=== PATIENT | male | born 1980 | race Hispanic/Latino ===

== ENCOUNTER 2017-08-14 11:17 | Emergency (ER) | payer SELFPAY ==
[2017-08-14] MEDS ORDERED: NA CHLORIDE 0.9% 1,000 ML ONE (11:46)
[2017-08-14] MEDS ORDERED: ONDANSETRON 4 MG/2 ML VIAL ONE (11:46)
[2017-08-14 12:00] LABS: Absolute Lymphocytes (CBC) 3.2 K/uL (0.7-4.9); Absolute Monocytes 0.7 K/uL (0.1-1.3); Basophils % 0.8 % (0-1.3); Eosinophils % 1.8 % (0-4.4); Hematocrit 49.9 % (39.6-49.0); MCH 29.5 pg (27.0-35.0); MCV 89.4 fL (80-100); MPV 9.1 fL (7.6-11.3); Monocytes % 8.1 % (3.3-12.3); RBC Red Blood Cell Count 5.58 M/uL (4.33-5.43)
[2017-08-14 12:07] LABS: Bicarbonate 27 mEq/L (21-31); Lipase 52 U/L (22-51); Potassium 4.1 mEq/L (3.6-5.0); Sodium Level 131 mEq/L (135-145)
[2017-08-14 12:10] LABS: Glucose Level 596 mg/dL (65-120)
[2017-08-14 12:13] LABS: ALT/SGPT 17 IU/L (10-60); AST/SGOT 16 IU/L (10-42); Albumin 4.4 g/dL (3.2-5.5); Alkaline Phosphatase 113 IU/L (42-121); BUN Blood Urea Nitrogen 12 mg/dL (6-20); Bilirubin Direct 0.1 mg/dL (0-0.2); Bilirubin Total 1.1 mg/dL (0.3-1.2); Protein, Total 7.3 g/dL (6.0-8.3)
[2017-08-14] MEDS ORDERED: INSULIN -REGULAR HUMAN 50 UNIT/0.5 ML ML ONE (12:16)
[2017-08-14 13:12] LABS: Urine Blood NEGATIVE (NEG); Urine Glucose 2+ (NEG); Urine Protein NEGATIVE (NEG); Urine pH 6.5 (5.0-7.0)
[2017-08-14 13:19] LABS: Urine Bacteria NONE SEEN /HPF (NONE SEEN); Urine RBC <5 /HPF (NONE SEEN)
[2017-08-14 13:20] LABS: Urine Culture Reflex Order NOT NEEDED
--- NOTE | 2017-08-14 13:56 | EDPHYS ---
Physician Documentation [facility] Name: Alexander Triana Age: 37 yrs Sex: Male : 1980 Arrival Date: 08/14/2017 Time: 11:19 Bed 5 Private MD: ED Physician Alvarado Calero HPI: 08/14 13:53 This 37 yrs old Male presents to ER via Ambulatory with complaints of High gs Blood Sugar. 13:53 The patient or guardian reports hyperglycemia. Onset: The symptoms/episode gs began/occurred 2 day(s) ago. Associated signs and symptoms: Pertinent positives: diarrhea, nausea, vomiting. Current symptoms: In the emergency department the patient's symptoms are unchanged from the initial presentation. The patient has experienced similar episodes in the past, a few times. Historical: - Allergies: 11:30 No Known Allergies; hj - Home Meds: 11:30 metformin 500 mg Oral tab 1 tab 2 times per day [Active]; hj - PMHx: 11:30 Diabetes - NIDDM; hj - PSHx: 11:30 Tonsillectomy; hj - Immunization history:: Adult Immunizations up to date. - Social history:: Smoking status: Patient/guardian denies using tobacco. ROS: 13:53 All other systems are negative. gs Exam: 13:53 Head/Face: Normocephalic, atraumatic. Eyes: Pupils equal round and reactive to light, gs extra-ocular motions intact. Lids and lashes normal. Conjunctiva and sclera are non-icteric and not injected. Cornea within normal limits. Periorbital areas with no swelling, redness, or edema. ENT: Nares patent. No nasal discharge, no septal abnormalities noted. Tympanic membranes are normal and external auditory canals are clear. Oropharynx with no redness, swelling, or masses, exudates, or evidence of obstruction, uvula midline. Mucous membranes moist. Neck: Trachea midline, no thyromegaly or masses palpated, and no cervical lymphadenopathy. Supple, full range of motion without nuchal rigidity, or vertebral point tenderness. No Meningismus. Chest/axilla: Normal chest wall appearance and motion. Nontender with no deformity. No lesions are appreciated. Cardiovascular: Regular rate and rhythm with a normal S1 and S2. No gallops, murmurs, or rubs. Normal PMI, no JVD. No pulse deficits. Respiratory: Lungs have equal breath sounds bilaterally, clear to auscultation and percussion. No rales, rhonchi or wheezes noted. No increased work of breathing, no retractions or nasal flaring. Abdomen/GI: Soft, non-tender, with normal bowel sounds. No distension or tympany. No guarding or rebound. No evidence of tenderness throughout. Back: No spinal tenderness. No costovertebral tenderness. Full range of motion. Skin: Warm, dry with normal turgor. Normal color with no rashes, no lesions, and no evidence of cellulitis. MS/ Extremity: Pulses equal, no cyanosis. Neurovascular intact. Full, normal range of motion. Neuro: Awake and alert, GCS 15, oriented to person, place, time, and situation. Cranial nerves II-XII grossly intact. Motor strength 5/5 in all extremities. Sensory grossly intact. Cerebellar exam normal. Normal gait. 13:53 Constitutional: The patient appears alert, awake, in obvious distress, moderately distressed. Vital Signs: 11:30 BP 115 / 77; Pulse 79; Resp 18; Temp 98.1(TE); Pulse Ox 99% on R/A; Weight 79.38 kg; hj Height 5 ft. 11 in. (180.34 cm); Pain 2/10; 12:30 BP 127 / 79; Pulse 76; Resp 19; Pulse Ox 100% on R/A; tw2 13:00 BP 116 / 74; Pulse 66; Resp 17; Pulse Ox 100% on R/A; tw2 14:02 BP 117 / 70; Pulse 75; Resp 17; Pulse Ox 100% on R/A; tw2 11:30 Body Mass Index 24.41 (79.38 kg, 180.34 cm) MDM: 11:45 Patient medically screened. 13:53 Differential diagnosis: DKA, hyperglycemia, PANCREATITIS. Data reviewed: vital signs, nurses notes. Response to treatment: the patient's symptoms have markedly improved after treatment, and as a result, I will discharge patient. 13:56 ED course: BETTER BS DOWN TOLERATING LIQUIDS. 08/14 11:36 Order name: Basic Metabolic Panel; Complete Time: 13:37 08/14 11:36 Order name: CBC with Diff; Complete Time: 12:11 08/14 11:36 Order name: Hepatic Function; Complete Time: 13:37 gs 08/14 11:36 Order name: Lipase; Complete Time: 13:37 gs 08/14 11:36 Order name: Urine Microscopic Only; Complete Time: 13:37 gs 08/14 11:41 Order name: Glucose; Complete Time: 12:11 sv 08/14 11:36 Order name: IV Saline Lock; Complete Time: 11:44 gs 08/14 12:59 Order name: Urine Dipstick--Ancillary (enter results); Complete Time: 13:37 dm5 08/14 14:08 Order name: Glucose, Ancillary Testing EDMS 08/14 14:08 Order name: Glucose, Ancillary Testing EDMS 08/14 14:08 Order name: Glucose, Ancillary Testing EDMS 08/14 11:36 Order name: Labs collected and sent; Complete Time: 11:44 gs 08/14 11:36 Order name: Urine Dipstick-Ancillary (obtain specimen); Complete Time: 14:05 gs Administered Medications: 11:45 Drug: Zofran 4 mg Route: IVP; Site: right antecubital; tw2 12:15 Follow up: Response: No adverse reaction; Nausea is decreased tw2 11:47 Drug: NS 0.9% 1000 ml Route: IV; Rate: 1 bolus; Site: right antecubital; tw2 12:26 Follow up: Response: No adverse reaction; IV Status: Completed infusion; IV Intake: tw2 1000ml 13:00 Follow up: Response: No adverse reaction; IV Status: Completed infusion; IV Intake: tw2 1000ml 12:17 Drug: Insulin Regular Human 5 units {Co-Signature: sv (Nancy Stout RN).} Route: tw2 IVP; Site: right antecubital; 12:52 Follow up: Response: No adverse reaction; Blood sugar is lowered tw2 Point of Care Testing: Blood Glucose: 11:30 Blood Glucose: 490 mg/dL; hj 11:44 Blood Glucose: High (>450 mg/dL); tw2 12:52 Blood Glucose: 254 mg/dL; tw2 14:01 Blood Glucose: 254 mg/dL; tw2 11:44 labs drawn at this time. tw2 Ranges: Critical Glucose Levels:Adult <50 mg/dl or >400 mg/dl <40 mg/dl or >180 mg/dl Disposition: 08/14/17 13:55 Discharged to Home. Impression: Hyperglycemia, unspecified, Vomiting, Diarrhea, unspecified. - Condition is Stable. - Discharge Instructions: Diarrhea, Hyperglycemia, Nausea and Vomiting. - Medication Reconciliation Form, Thank You Letter, Antibiotic Education, Prescription Opioid Use form. - Follow up: Private Physician; When: 1 - 2 days; Reason: Re-evaluation by your physician. Signatures: Dispatcher [employer] EDMS Michel Mckinney RN RN Elizabeth Ruano RN RN tw2 Alvarado Calero MD MD Nancy Stout RN sv Corrections: (The following items were deleted from the chart) 14:14 13:55 08/14/2017 13:55 Discharged to Home. Impression: Hyperglycemia, unspecified; tw2 Vomiting; Diarrhea, unspecified. Condition is Stable. Forms are Medication Reconciliation Form, Thank You Letter, Antibiotic Education, Prescription Opioid Use. Follow up: Private Physician; When: 1 - 2 days; Reason: Re-evaluation by your physician.
--- NOTE | 2017-08-14 13:56 | ER ---
Nurse's Notes [facility] Name: Alexander Triana Age: 37 yrs Sex: Male : 1980 Arrival Date: 08/14/2017 Time: 11:19 Bed 5 Private MD: Diagnosis: Hyperglycemia, unspecified;Vomiting;Diarrhea, unspecified Presentation: 08/14 11:28 Presenting complaint: Patient states: im diabetic and had a stomach bug and throw ed up hj since yesterday; i checked my sugar today- 400; reports diarrhea and vomiting;. Transition of care: patient was not received from another setting of care. Onset of symptoms was August 14, 2017. Initial Sepsis Screen: Does the patient meet any 2 criteria? No. Patient's initial sepsis screen is negative. Does the patient have a suspected source of infection? No. Patient's initial sepsis screen is negative. Care prior to arrival: None. 11:28 Method Of Arrival: Ambulatory 11:28 Acuity: MICHAEL 3 hj Triage Assessment: 11:30 General: Appears in no apparent distress. uncomfortable, Behavior is calm, cooperative, hj appropriate for age. Pain: Complains of pain in abdomen. Historical: - Allergies: 11:30 No Known Allergies; hj - Home Meds: 11:30 metformin 500 mg Oral tab 1 tab 2 times per day [Active]; hj - PMHx: 11:30 Diabetes - NIDDM; hj - PSHx: 11:30 Tonsillectomy; hj - Immunization history:: Adult Immunizations up to date. - Social history:: Smoking status: Patient/guardian denies using tobacco. Screenin:53 Abuse screen: Denies threats or abuse. Nutritional screening: No deficits noted. tw2 Tuberculosis screening: No symptoms or risk factors identified. Fall Risk None identified. Assessment: 11:40 General: Appears in no apparent distress. slender, well groomed, Behavior is calm, tw2 cooperative, appropriate for age. Pain: Denies pain. Neuro: Level of Consciousness is awake, alert, obeys commands, Oriented to person, place, time, situation. Cardiovascular: Denies chest pain, shortness of breath, Heart tones S1 S2 Capillary refill < 3 seconds Patient's skin is warm and dry. Respiratory: Airway is patent Respiratory effort is even, unlabored, Respiratory pattern is regular, symmetrical, Breath sounds are clear bilaterally. GI: Abdomen is flat, Bowel sounds present X 4 quads. Abd is soft X 4 quads Reports diarrhea, nausea, vomiting. : No signs and/or symptoms were reported regarding the genitourinary system. EENT: No signs and/or symptoms were reported regarding the EENT system. Derm: No signs and/or symptoms reported regarding the dermatologic system. Skin is intact, is healthy with good turgor, Skin temperature is warm. Musculoskeletal: Range of motion: intact in all extremities. 12:10 Reassessment: per Aj,Lab GLUCOSE 594 mg/dL, Dr. Calero notified at this time. tw2 12:52 Reassessment: Patient appears in no apparent distress at this time. No changes from tw2 previously documented assessment. Patient and/or family updated on plan of care and expected duration. Pain level reassessed. Patient is alert, oriented x 3, equal unlabored respirations, skin warm/dry/pink. 13:00 Reassessment: Patient appears in no apparent distress at this time. Patient and/or tw2 family updated on plan of care and expected duration. Pain level reassessed. Patient is alert, oriented x 3, equal unlabored respirations, skin warm/dry/pink. Patient states feeling better. Patient states symptoms have improved. 14:03 Reassessment: Patient appears in no apparent distress at this time. No changes from tw2 previously documented assessment. Patient and/or family updated on plan of care and expected duration. Pain level reassessed. Patient is alert, oriented x 3, equal unlabored respirations, skin warm/dry/pink. Patient states feeling better. Patient states symptoms have improved. Vital Signs: 11:30 BP 115 / 77; Pulse 79; Resp 18; Temp 98.1(TE); Pulse Ox 99% on R/A; Weight 79.38 kg; hj Height 5 ft. 11 in. (180.34 cm); Pain 2/10; 12:30 BP 127 / 79; Pulse 76; Resp 19; Pulse Ox 100% on R/A; tw2 13:00 BP 116 / 74; Pulse 66; Resp 17; Pulse Ox 100% on R/A; tw2 14:02 BP 117 / 70; Pulse 75; Resp 17; Pulse Ox 100% on R/A; tw2 11:30 Body Mass Index 24.41 (79.38 kg, 180.34 cm) ED Course: 11:19 Patient arrived in ED. rg4 11:29 Triage completed. hj 11:30 Arm band placed on right wrist. hj 11:34 Elizabeth Ruano, RN is Primary Nurse. tw2 11:35 Alvarado Calero MD is Attending Physician. 11:40 Bed in low position. Call light in reach. Adult w/ patient. Pulse ox on. NIBP on. tw2 11:44 Glucose Sent. tw2 11:44 Inserted saline lock: 20 gauge in right antecubital area, using aseptic technique. tw2 Blood collected. 14:03 No provider procedures requiring assistance completed. tw2 14:13 IV discontinued, intact, bleeding controlled, No redness/swelling at site. Pressure tw2 dressing applied. Administered Medications: 11:45 Drug: Zofran 4 mg Route: IVP; Site: right antecubital; tw2 12:15 Follow up: Response: No adverse reaction; Nausea is decreased tw2 11:47 Drug: NS 0.9% 1000 ml Route: IV; Rate: 1 bolus; Site: right antecubital; tw2 12:26 Follow up: Response: No adverse reaction; IV Status: Completed infusion; IV Intake: tw2 1000ml 13:00 Follow up: Response: No adverse reaction; IV Status: Completed infusion; IV Intake: tw2 1000ml 12:17 Drug: Insulin Regular Human 5 units {Co-Signature: sv (Nancy Stout RN).} Route: tw2 IVP; Site: right antecubital; 12:52 Follow up: Response: No adverse reaction; Blood sugar is lowered tw2 Point of Care Testing: Blood Glucose: 11:30 Blood Glucose: 490 mg/dL; hj 11:44 Blood Glucose: High (>450 mg/dL); tw2 12:52 Blood Glucose: 254 mg/dL; tw2 14:01 Blood Glucose: 254 mg/dL; tw2 11:44 labs drawn at this time. tw2 Ranges: Intake: 12:26 IV: 1000ml; Total: 1000ml. tw2 13:00 IV: 1000ml; Total: 2000ml. tw2 Outcome: 13:55 Discharge ordered by . 14:13 Discharged to home ambulatory, with family. tw2 14:13 Condition: stable 14:13 Discharge instructions given to patient, family, Instructed on discharge instructions, follow up and referral plans. Demonstrated understanding of instructions, follow-up care. 14:14 Patient left the ED. tw2 Signatures: Michel Mckinney RN RN Elizabeth Ruano RN RN tw2 Kita Nielsen rg4 Alvarado Calero MD MD Nancy Stout RN sv
== END 2017-08-14 14:14 | disposition home or self-care (01) ==
LOC: ER 11:17
DX: E11.65 Type 2 diabetes mellitus with hyperglycemia (principal); R19.7 Diarrhea, unspecified
CPT/HCPCS: 36415; 80048; 80076; 81003; 81015; 82947; 82962; 83690; 85025; 96361; 96374; 96375; 99284; J2405; J7030